=== PATIENT | male | born 1970 | race Caucasian/White ===

== ENCOUNTER 2016-11-11 17:34 | Emergency (ER) | payer OTHER ==
[~2016-11-11] VITALS: Ht 180.3 cm; Wt 111.1 kg
[~2016-11-11 17:34] MED LIST: LIPITOR40 M1 PO; LISINOPRIL2.5 M1 PO; PANTOPRAZOLE SO40 MG PO; PROAIR HFA0.09 MG/Ac INH; TORADOL10 MG PO
[2016-11-11 17:58] LABS: ABSOLUTE BASOPHIL COUNT 0 /CUMM (0.0-0.2); ABSOLUTE EOSINOPHIL COUNT 0.1 /CUMM (0.0-0.7); ABSOLUTE GRANULOCYTE CT 3.8 /CUMM (1.4-6.5); ABSOLUTE LYMPH COUNT 1.6 /CUMM (1.2-3.4); ABSOLUTE MONOCYTE COUNT 0.5 /CUMM (0.10-0.60); BASOPHIL % 0.4 % (0.0-2.0); EOSINOPHIL % 1.3 % (0-5); GRANULOCYTE % 64.5 % (42.2-75.2); HEMATOCRIT 45.4 % (42-52); MEAN CORPUSCULAR HGB 31.4 PG (27.0-31.0); MEAN CORPUSCULAR HGB CONC 34.4 G/DL (33.0-37.0); MEAN CORPUSCULAR VOLUME 91.3 FL (80.0-94.0); MEAN PLATELET VOLUME 7.5 FL (7.4-10.4); PLATELET COUNT 192 /CUMM (130-400); RBC DISTRIBUTION WIDTH 12.3 % (11.5-14.5); RED BLOOD CELL CT 4.97 /CUMM (4.70-6.10); WHITE BLOOD CELL COUNT 5.9 /CUMM (4.8-10.8)
--- NOTE | 2016-11-11 18:10 | ED CARDIAC/CP/PALPITATIONS ---
History of Present Illness General Chief Complaint: Chest Pain Stated Complaint: CHEST PAIN X 2 DAYS Source: patient, family, old records Exam Limitations: no limitations Vital Signs & Intake/Output Vital Signs & Intake/Output Vital Signs Date Time Temp Pulse Resp B/P B/P Pulse O2 O2 Flow FiO2 Mean Ox Delivery Rate 11/12 2107 98.1 74 20 133/72 99 11/11 1928 79 116/74 11/11 1851 79 20 124/65 98 Room Air 11/11 1746 99.0 88 16 138/96 98 Room Air Triage Note: PT STATES THAT HE HAS A HISTORY OF REFLUX AND THAT HE HAS BEEN HAVING AN ACHEY FEELING THAT IS MID EPIGASTIC AREA AND RADIATES TO R RIBS SINCE YESTERDAY. DENIES SOB. NSR ON EKG. LABS SENT Triage Nurses Notes Reviewed? yes HPI: Patient is a 46-year-old male presents complaining of chest pain. Chest pain for approximately 2 days. Pain is a dull sensation that becomes sharp with sitting up and deep breath. Standing up appears to improve the pain. Patient's mother took his pulse earlier today and it appeared to be fast. Patient has history of acid reflux reports the sensation feels different. Patient had a cardiac catheterization in June 2013 which was reportedly negative. Patient has not been seen by a cardiac monitor since then. (ISABELLE ROBERTSON) Allergies Coded Allergies: shellfish derived (Severe, SWELLING, HIVES 11/11/16) Penicillins (UNKNOWN 11/11/16) Reconcile Medications Atorvastatin Calcium (Lipitor) 40 MG TABLET 1 TAB PO DAILY CHOL (Reported) Linagliptin (Tradjenta) 5 MG TABLET 1 TAB PO DAILY DM (Reported) Lisinopril 2.5 MG TABLET 1 TAB PO DAILY HTN (Reported) Metformin HCl (Metformin HCl ER) 500 MG TAB.ER.24H 1 TAB PO DAILY DM ( Reported) Omeprazole 20 MG CAPSULE.DR 1 CAP PO DAILY GERD (Reported) (ADRIANA GRACE PA-C) Past History Travel History Traveled to [place] past 21 day No Medical History Any Pertinent Medical History? see below for history Neurological: NONE EENT: NONE Cardiovascular: hypertension Respiratory: NONE Gastrointestinal: DIVERTICULITIS Hepatic: NONE Renal: NONE Musculoskeletal: NONE Psychiatric: NONE Endocrine: diabetes Blood Disorders: NONE Cancer(s): NONE Surgical History Surgical History: cardiac catheterization in 2012 Psychosocial History Who do you live with Family Services at Home None What is your primary language Comoran Tobacco Use: Current Daily Use (chewing tobacco) Daily Tobacco Use Amount/Type: Smokeless tobacco daily ETOH Use: denies use Illicit Drug Use: denies illicit drug use Family History Hx Contributory? No (ISABELLE ROBERTSON) Review of Systems Review of Systems Constitutional: Denies: chills, fever. EENTM: Reports: no symptoms. Respiratory: Denies: cough, short of breath. Cardiovascular: Reports: see HPI. GI: Reports: see HPI, vomiting (once this morning). Musculoskeletal: Reports: no symptoms. Skin: Reports: no symptoms. Neurological/Psychological: Reports: no symptoms. Hematologic/Endocrine: Reports: no symptoms. Immunologic/Allergic: Reports: no symptoms. (ISABELLE ROBERTSON) Physical Exam Physical Exam General Appearance: well developed/nourished, alert, awake Head: atraumatic, normal appearance Eyes: Bilateral: normal appearance, PERRL, EOMI. Ears, Nose, Throat: normal pharynx, normal ENT inspection, hearing grossly normal Neck: normal inspection, supple, full range of motion Respiratory: normal breath sounds, chest non-tender, no respiratory distress, lungs clear Cardiovascular: regular rate/rhythm Gastrointestinal: normal bowel sounds, soft, non-tender Back: normal inspection, normal range of motion Extremities: normal inspection, normal capillary refill, normal range of motion, no edema Neurologic/Psych: no motor/sensory deficits, awake, alert, oriented x 3, normal gait, normal mood/affect Skin: intact, normal color, warm/dry Lymphatic: no anterior cervical regine Core Measures ACS in differential dx? Yes ASA ordered for poss ACS? Yes-ordered Severe Sepsis Present: No Septic Shock Present: No (ISABELLE ROBERTSON) Progress Differential Diagnosis: AMI, aortic dissection, atrial fibrillation, cholecystitis, CHF/pulm edema, costochondritis, hyperventilation, musculoskeletal pain, myocarditis, pancreatitis, pericarditis, pneumonia, pneumothorax, PSVT, pulmonary embolism, PUD/GERD, PVCs/PACs, respiratory failure , rib fracture, sepsis, unstable angina, V-fib/V-Tach, WPW syndrome Diagnostic Imaging: Viewed by Me: Radiology Read. Discussed w/RAD: Radiology Read. CXR Impression: no acute abnormality Initial ED EKG: normal axis, normal intervals, normal p-waves, normal QRS complex, normal sinus rhythm, no ST T wave changes Rhythm Strip: normal sinus rhythm Hand-Off Endorsed To: ADRIANA GRACE PA-C Pending: EKG, labs (ISABELLE ROBERTSON) Plan of Care: Orders Procedure Date/time Status Telemetry/Track [employer] Supervisor 11/11 1824 Active Add-on Test (ER Only) 11/11 1818 Active LIPASE 11/11 174 Active AMYLASE 11/11 174 Active TROPONIN LEVEL 11/11 173 Active COMPREHENSIVE METABOLIC PANEL 11/11 173 Active CBC WITHOUT DIFFERENTIAL 11/11 173 Complete EKG 11/11 173 Active Current Medications Sig/Gemma Start time Last Medication Dose Stop Time Status Admin Famotidine 20 MG ONCE ONE 11/11 1929 CAN (Pepcid) 11/11 1930 Morphine Sulfate 4 MG ONCE ONE 11/11 1929 CAN (Morphine) 11/11 1930 Nitroglycerin 0.4 MG Q 5 MINUTES X 3 DO.. 11/11 183 UNVr 11/11 (Nitrostat) 1850 Laboratory Tests 11/11/16 1746: Anion Gap 11, Estimated GFR > 60, BUN/Creatinine Ratio 9.1, Glucose 118 H, Calcium 9.3, Total Bilirubin 0.7, AST 61 H, ALT 169 H, Alkaline Phosphatase 70 , Troponin I < 0.01, Total Protein 7.1, Albumin 4.5, Globulin 2.6, Albumin/ Globulin Ratio 1.7, Amylase Pending, Lipase Pending, CBC w Diff NO MAN DIFF REQ, RBC 4.97, MCV 91.3, MCH 31.4 H, RDW 12.3, MPV 7.5, Gran % 64.5, Lymphocytes % 26.2, Monocytes % 7.6, Eosinophils % 1.3, Basophils % 0.4, Absolute Granulocytes 3.8, Absolute Lymphocytes 1.6, Absolute Monocytes 0.5, Absolute Eosinophils 0.1, Absolute Basophils 0, PUBS MCHC 34.4 1943: No relief of symptoms from aspirin and nitroglycerin. Results of ekg and labs discussed with patient and his family members. Pepcid and GI cocktail ordered. Dr. Gio bradford to discuss. 1949: Discussed with Dr. Alfaro: obtain repeat ekg and troponin, if negative then can have follow up closely outpatient. Signed out to Adriana Grace PA-C at 1999 with repeat ekg and troponin pending (ISABELLE ROBERTSON) Repeat EKG: unchanged (80 BPM) Comments: 11/11/2016 8:52:11 PM: PATIENT SIGNED OUT TO ME AT CHANGE OF SHIFT BY LAITH MEIER. PENDING REPEAT EKG AND REPEAT TROPONIN. LAITH MEIER SPOKE TO ON-CALL CLOTH SHEARER, DR ALFARO WHO SUGGEST THESE REPEAT TESTS AND OUT PATIENT FOLLOW- UP. (LESLY LYNCH,ADRIANA) Departure Departure Condition: Stable Departure Forms: Customer Survey General Discharge Information (ISABELLE ROBERTSON) Departure Disposition: HOME OR SELF CARE Clinical Impression Primary Impression: Chest pain Qualifiers: Chest pain type: unspecified Qualified Code: R07.9 - Chest pain, unspecified Referrals: GIO MCDERMOTT,WILL GUTHRIE MD,VLADIMIR Toure (PCP/Family) DENI MCDERMOTT,RAJI Oconnor Additional Instructions: PLEASE FOLLOW-UP WITH CLOTH SHEARER AND CREW CALLER, BOTH WHOSE INFORMATION HAS BEEN PROVIDED TO YOU IN THIS PACKET. RETURN FOR ANY WORSENING SYMPTOMS OR CONCERNS. (LESLY LYNCH,ADRIANA) PA/HELPDES[employer] SPECIALIST Co-Sign Statement Statement: ED Attending supervision documentation- I saw and evaluated the patient. I have also reviewed all the pertinent lab results and diagnostic results. I agree with the findings and the plan of care as documented in the PA's/HELPDESK SPECIALIST's documentation. x I have reviewed the ED Record and agree with the PA's/HELPDESK SPECIALIST's documentation. [] Additions or exceptions (if any) to the PAs/HELPDES[employer] SPECIALIST's note and plan are summarized below: [] (JAY MCDERMOTT,MICHELLE) Critical Care Note Critical Care Note Critical Care Time: non-applicable (ISABELLE ROBERTSON)
--- NOTE | 2016-11-11 18:50 | RADIOLOGY REPORT ---
EXAMINATION: XR PORTABLE CHEST CLINICAL INFORMATION: Chest pain. COMPARISON: Portable chest x-ray 06/07/2013. TECHNIQUE: Portable frontal view of the chest was obtained. FINDINGS: The lungs are hypoinflated, without focal airspace consolidation. No pleural effusions or pneumothoraces are identified. Cardiomediastinal contours are within normal limits. Soft tissues are unremarkable. No acute osseous abnormality is identified. IMPRESSION: No acute pulmonary process.
[2016-11-11] MEDS ORDERED: OMEPRAZOLE20 M2 PO (19:52)
[2016-11-11] MEDS ORDERED: TRADJENTA5 M1 PO (19:52)
[2016-11-11] MEDS ORDERED: METFORMIN HCL500 M4 PO (19:53)
[2016-11-11 21:08] VITALS: BP 133/72
== END 2016-11-11 21:55 ==
LOC: ERH 17:34
PROVIDERS: Emergency Medicine
DX: R07.9 Chest pain, unspecified (principal)
CPT/HCPCS: 93005; 93010; 96374; J3490